=== PATIENT | female | born 1955 | race Caucasian/White ===

== ENCOUNTER 2018-01-01 19:22 | Emergency (ER) | payer SELFPAY ==
[2018-01-01 19:30] VITALS: BMI 37.8
--- NOTE | 2018-01-01 20:42 | RAD ---
HISTORY: Cough Study: PA and lateral views of the chest. Comparison: None. Findings: The cardiomediastinal silhouette is normal. No focal consolidations, pleural effusions or pneumothora x. Osseous structures demonstrate no acute abnormality. IMPRESSION: 1. No acute cardiopulmonary process. Reported By:
--- NOTE | 2018-01-01 20:44 | DR.GENAD ---
HPI - PCP Primary Care Physician: SEDRICK - Complaint/Symptoms Chief Complaint Doctors Comments: History as stated. Chief Complaint:: PT STATES" I'M HAVING A BAD COUGH I FEEL LIKE I GOT FLUID BUILD UP I CAN HEAR MYSELF RATTLE" - Source History Provided: Patient - Mode of Arrival Mode of Arrival: Ambulatory - Timing Onset of Chief Complaint: 12/29/17 PMH - PMH Past Medical History: Yes Past Medical History: Diabetes, Hypertension, Hypothyroidism Past Surgical History: No - Family History History of Family Medical Conditions: Yes Family Medical History: [place], Hypertension - Social History Lives With: Family Lives Where: Home - infectious screening In the last 2 months have you had wt loss of >10#?: NO Have you had fever, night sweats or hemotysis?: No Have you traveled outside the country in the last 6 months?: No ROS - Review of Systems Eyes: No Symptoms Reported ENTM: No Symptoms Reported Respiratoy: Non-Productive Cough Cardiovascular: No Symptoms Reported Gastrointestinal/Abdominal: No Symptoms Reported Genitourinary: No Symptoms Reported Neurological: No Symptoms Reported Musculoskeletal: No Symptoms Reported Integumentary: No Symptoms Reported Hematologic/Lymphatic: No Symptoms Reported Endocrine: No Symptoms Reported Psychiatric: No Symptoms Reported All Other Systems: Reviewed and Negative PE - Vital Signs Vitals: Temperature 98 F Pulse Rate 69 Respiratory Rate 20 Blood Pressure 121/77 O2 Sat by Pulse Oximetry 95 - General Limitations: No Limitations General Appearance: Alert, In No Apparent Distress - Head Head Exam: Normal Inspection, Atraumatic - Eyes Eye exam: Normal Appearance, PERRL, EOMI - ENT ENT Exam: Normal Exam External Ear Exam: Normal External Inspection TM/Canal Exam: Bilateral Normal Nose Exam: Normal Nose Exam Mouth Exam: Normal Inspection Throat Exam: Normal Inspection - Neck Neck Exam: Normal Inspection, Full ROM - Chest Chest Inspection: Normal Inspection - Respiratory Respiratory Exam: Normal Lung Sounds Bilat Respiratory Exam: Bilateral Clear to Auscultation - Cardiovascular Cardiovascular Exam: Regular Rate, Normal Rhythm - Abdominal Exam Abdominal Exam: Normal Inspection, Normal Bowel Sounds Abdominal Tenderness: negative: RUQ, RLQ, LUQ, LLQ, Epigastrium, Suprapubic, Diffuse, Mild, Moderate, Severe, Other - Extremities Extremities Exam: Normal Inspection, Full ROM - Back Back Exam: Normal Inspection, Full ROM - Neurologic Neurological Exam: Alert, Oriented X3, CN II-XII Intact - Psychiatric Psychiatric Exam: Normal Affect - Skin Skin Exam: Warm, Dry, Intact Course - Reevaluation 1st: Unchanged ROR - XRAY XRAY Interpreted by: Radiologist (Chest: negative) - Diagnosis Discharge Problem: Cough - Discharge Plan Condition: Stable - Follow ups/Referrals Follow ups/Referrals: DOROTHY DUBOSE [Primary Care Provider] - 3 days - Instructions
[2018-01-01 20:54] VITALS: BP 120/74
== END 2018-01-01 20:54 | disposition home or self-care (01) ==
LOC: ER 19:22
DX: R05 Cough (principal)
CPT/HCPCS: 71046; 99282

== ENCOUNTER 2020-09-17 12:11 | Inpatient (IN) ==
[2020-09-17 12:28] VITALS: BMI 39.4
--- NOTE | 2020-09-17 12:42 | DR.DIZZY ---
HPI Time seen Time Seen by Provider: 09/17/20 12:35 PCP Primary Care Physician: HERMELINDA KAY HPI Comment HPI Comment: A 65 y/o female presenting weakness, dizziness x 3 weeks. She states her urine output and bowel movement are decreased. She numbness to her legs also. Complaint Chief Complaint:: PT STATES I HAVE HAD NUMBNESS TO HER LEGS , COLD EXT'S , NAUSEA , PROBLEMS PEEING AND POOPING AND WEAKNESS ,, PT STATES " I HAVE BEEN LIKE THIS FOR 3 WEEKS "..BR COVID-19 Coronavirus risk:travel/contact w/high risk person: No Has patient experienced Coronavirus symptoms: No Nurses Notes Reviewed Nurses Notes Review: Yes Source History Provided: Patient Mode of Arrival Mode of Arrival: Stretcher Timing Onset of Chief Complaint: 09/03/20 Came on: Gradually Duration How lon Duration: Weeks Location of Weakness Weakness Location: Generalized Context Onset: With light exertion Does pt take pot. toxic medication?: No History of: None Stroke Symptoms: None Modifying factors Worsens: Nothing Associated signs and symptoms Associated Signs and Symptoms: Nausea PMH PMH Past Medical History: Yes Past Medical History: Diabetes, Hypertension and Hypothyroidism Past Surgical History: Yes Surgical History: Unknown Family History History of Family Medical Conditions: Yes Family Medical History: [place] and Hypertension Social History Does patient currently use any type of tobacco product: No Have you used tobacco products in the last 12 months: No Type of Tobacco Use: None Does any household member use tobacco: No Alcohol Use: Rarely Do you use any recreational Drugs:: No Lives With: Family Lives Where: Home Travel Risk Coronavirus risk:travel/contact w/high risk person: No Has patient experienced Coronavirus symptoms: No Infectious screening In the last 2 months have you had wt loss of >10#?: NO Have you had fever, night sweats or hemotysis?: No Have you traveled outside the country in the last 6 months?: No Isolation: Standard ROS Review of Systems Constitutional: Weakness Eyes: No Symptoms Reported ENTM: No Symptoms Reported Respiratoy: No Symptoms Reported Cardiovascular: No Symptoms Reported Gastrointestinal/Abdominal: Nausea Genitourinary: No Symptoms Reported Neurological: Paresthesia (legs) Musculoskeletal: No Symptoms Reported Integumentary: No Symptoms Reported Hematologic/Lymphatic: No Symptoms Reported Endocrine: No Symptoms Reported Psychiatric: No Symptoms Reported PE Vital Signs Vitals: Temperature 98.1 F Pulse Rate 74 Respiratory Rate 18 Blood Pressure [Left Arm] 179/79 Blood Pressure 132/63 O2 Sat by Pulse Oximetry 91 General Limitations: No Limitations General Appearance: Alert and In No Apparent Distress Head Head Exam: Normal Inspection, Atraumatic and Normocephalic Eyes Eye exam: Normal Appearance and EOMI ENT ENT Exam: Normal Exam, Normal Oropharynx, Normal External Ear Exam and Mucous Membranes Moist Neck Neck Exam: Normal Inspection, Full ROM and Trachea Midline Chest Chest Inspection: Normal Inspection and Symmetric Chest Wall Rise Respiratory Respiratory Exam: Normal Lung Sounds Bilat Cardiovascular Cardiovascular Exam: Regular Rate, Normal Rhythm, Normal Heart Sounds, +S1 and +S2 Abdominal Exam Abdominal Exam: Normal Inspection, Normal Bowel Sounds and Soft Rectal Rectal Exam: Deferred Extremeties Extremities Exam: Normal Inspection and Full ROM Back Back Exam: Normal Inspection and Full ROM Neurologic Neurological Exam: Alert and Oriented X3 Psychiatric Psychiatric Exam: Normal Affect and Normal Mood Skin Skin Exam: Dry and Normal Color COURSE Reevaluation 1st: Unchanged Education/Counseling Education/Counseling: Patient, Education and Counseling Educated On: Treatment, Diagnosis, Prognosis and Needs for Follow Up ROR Labs Reviewed Laboratory Results Reviewed?: Yes Result Diagrams: 09/17/20 12:57 09/17/20 12:57 Laboratory: WBC 3.4 X10^3/uL (3.6-10.0) L 09/17/20 12:57 RBC 1.07 X10^6/uL (3.5-5.4) L 09/17/20 12:57 Hgb 5.0 g/dL (12.0-16.0) L* 09/17/20 12:57 Hct 14.4 % (36.0-47.0) L* 09/17/20 12:57 MCV 133.7 fL (80.0-100.0) H 09/17/20 12:57 MCH 46.2 pg (27.0-34.0) H 09/17/20 12:57 MCHC 34.5 g/dL (33.0-35.0) 09/17/20 12:57 RDW 16.3 % (11.6-16.5) 09/17/20 12:57 Plt Count 71 X10^3/uL (150.0-450.0) L 09/17/20 12:57 Plt Count Comment Decreased (ADEQUATE) A 09/17/20 12:57 MPV 10.7 fL (7.4-11.0) 09/17/20 12:57 Neut % (Auto) 48.4 % (42.0-75.0) 09/17/20 12:57 Lymph % (Auto) 43.7 % (21.0-51.0) 09/17/20 12:57 [place] % (Auto) 3.7 % (0.0-13.0) 09/17/20 12:57 Eos % (Auto) 4.0 % (0.9-2.9) H 09/17/20 12:57 Baso % (Auto) 0.2 % (0.2-1.0) 09/17/20 12:57 Neut # (Auto) 1.6 x10^3/uL (2.2-4.8) L 09/17/20 12:57 Lymph # (Auto) 1.5 X10^3/uL (1.3-2.9) 09/17/20 12:57 [place] # (Auto) 0.1 x10^3/uL (0.3-0.8) L 09/17/20 12:57 Eos # (Auto) 0.1 x10^3/uL (0.0-0.2) 09/17/20 12:57 Baso # (Auto) 0.0 X10^3/uL (0.0-0.1) 09/17/20 12:57 Absolute Nucleated RBC 0.1 /100WBC 09/17/20 12:57 Plt Morphology Comment Normal (NORMAL) 09/17/20 12:57 RBC Morphology Abnormal (NORMAL) A 09/17/20 12:57 Poikilocytosis 1+ A 09/17/20 12:57 Macrocytosis 3+ A 09/17/20 12:57 Sodium 141 mmol/L (136-145) 09/17/20 12:57 Corrected Sodium 143 mmol/L (136-145) 09/17/20 12:57 Potassium 4.6 mmol/L (3.5-5.1) 09/17/20 12:57 Chloride 105 mmol/L (98-107) 09/17/20 12:57 Carbon Dioxide 29.0 mmol/L (21-32) 09/17/20 12:57 BUN 32 mg/dL (7-18) H 09/17/20 12:57 Creatinine 1.63 mg/dL (0.55-1.02) H 09/17/20 12:57 Est GFR (MDRD) Af Amer 41 (>60) L 09/17/20 12:57 Est GFR (MDRD) Non-Af 34 (>60) L 09/17/20 12:57 Glucose 185 mg/dL (65-99) H 09/17/20 12:57 Calcium 9.2 mg/dL (8.5-10.1) 09/17/20 12:57 Corrected Calcium TNP 09/17/20 12:57 Total Bilirubin 1.30 mg/dL (0.2-1.0) H 09/17/20 12:57 AST 36 Units/L (15-37) 09/17/20 12:57 ALT 18 Units/L (12-78) 09/17/20 12:57 Alkaline Phosphatase 47 Units/L (46-116) 09/17/20 12:57 Total Protein 7.1 g/dL (6.4-8.2) 09/17/20 12:57 Albumin 3.4 g/dL (3.4-5.0) 09/17/20 12:57 Globulin 3.7 g/dL (2.5-4.5) 09/17/20 12:57 Albumin/Globulin Ratio 0.9 Ratio (1.1-2.1) L 09/17/20 12:57 TSH 3rd Generation 2.622 uIU/mL (0.358-3.74) 09/17/20 12:57 Stool Description Fob tube 09/17/20 14:48 Stl Occult Blood (IFOB) Negative (NEGATIVE) 09/17/20 14:48 Blood Type A POSITIVE 09/17/20 14:40 Antibody Screen Negative 09/17/20 14:40 Crossmatch See Detail 09/17/20 14:40 EKG Rate: 65 [place]: Normal Rhythm: NSR Block: None Hypertrophy: None Opioid Opioid Risk Tool Age (Tae box if 16-45): No History of Preadolescent Sexual Abuse: No Total: 0 Total Score Risk Category: Low Risk Copyright: Herbert DILL predicting aberrant behaviors Diagnosis Discharge Problem: Anemia, macrocytic, Hypothyroidism (acquired), Benign essential HTN Type 2 diabetes mellitus Qualifiers: Diabetes mellitus computer terminal operator insulin use: without computer terminal operator use Diabetes mellitus complication status: without complication Qualified Code(s): E11.9 - Type 2 diabetes mellitus without complications ADDITIONAL NOTES Additional Notes Additional Notes: [id number] : 1955 Sex: F Location: ER Order Number(s): [id number] Procedure(s):LUMBAR SPINE W/O CON Ordering Physician: NIXON MART Primary Care: Eileen Anne Service Date: 09/17/20 Service Time: 1259 HISTORY NUMBNESS LOWER LEGS STUDY LUMBAR SPINE W/O CON COMPARISON None. TECHNIQUE Multiple axial images of the lumbar spine were obtained from the thoracolumbar junction to the sacrum without the administration of IV contrast. Sagittal and coronal reformats were performed and reviewed. Dose reduction techniques including Automated Exposure Control (AEC) and adjustment of mA and kV were utilized. FINDINGS There is a lucent lesion at L3 at the left vertebral body that measures 1.7 cm craniocaudal image 31 series 7. On the axial sequence image 47 series 4 the lesion has internal trabecula consistent with a hemangioma. There is minimal retrolisthesis of L1 on L2 and L2 on L3. Minimal rightward curvature apex L2-3. No fracture or aggressive osseous lesion. No significant bony encroachment on the spinal canal or neural foramina. Mild vacuum disc phenomena at T12-L1 and L1-L2. Overall mild spondylosis. Moderately atherosclerotic normal caliber abdominal aorta. IMPRESSION Mild spondylosis of the lumbar spine with mild degenerative listhesis as above. MRI may provide further evaluation on stenosis of the canal and neural foramina. Lucent lesion at L3 likely a hemangioma. Electronically signed by: Carlo Cantu (Sep 17, 2020 13:52:00)
[2020-09-17] MEDS ORDERED: NS 1000 ML 1,000 ML IV ONE ×2 (12:53→14:41)
[2020-09-17 13:03] LABS: BASOPHILS % (AUTO) 0.2 % (0.2-1.0); EOSINOPHILS # (AUTO) 0.1 x10^3/uL (0.0-0.2); LYMPHOCYTES # (AUTO) 1.5 X10^3/uL (1.3-2.9); LYMPHOCYTES % (AUTO) 43.7 % (21.0-51.0); MEAN CORPUSCULAR HEMOGLOBIN 46.2 pg (27.0-34.0); MEAN CORPUSCULAR HGB CONC 34.5 g/dL (33.0-35.0); MEAN CORPUSCULAR VOLUME 133.7 fL (80.0-100.0); MEAN PLATELET VOLUME 10.7 fL (7.4-11.0); MONOCYTES # (AUTO) 0.1 x10^3/uL (0.3-0.8); MONOCYTES % (AUTO) 3.7 % (0.0-13.0); NEUTROPHILS # (AUTO) 1.6 x10^3/uL (2.2-4.8); NEUTROPHILS % (AUTO) 48.4 % (42.0-75.0); PLATELET COUNT 71 X10^3/uL (150.0-450.0); RED BLOOD COUNT 1.07 X10^6/uL (3.5-5.4); RED CELL DISTRIBUTION WIDTH 16.3 % (11.6-16.5); WHITE BLOOD COUNT 3.4 X10^3/uL (3.6-10.0)
[2020-09-17 13:12] LABS: HEMATOCRIT 14.4 % (36.0-47.0)
[2020-09-17 13:17] LABS: PLATELET MORPHOLOGY COMMENT NORMAL (NORMAL); POIKILOCYTOSIS 1+
[2020-09-17] MEDS ORDERED: NS 1000 ML 1,000 ML ONE ×2 (13:18→14:33)
[2020-09-17 13:24] LABS: ALANINE AMINOTRANSFERASE 18 Units/L (12-78); ALBUMIN 3.4 g/dL (3.4-5.0); ALKALINE PHOSPHATASE 47 Units/L (46-116); ASPARTATE AMINO TRANSFERASE 36 Units/L (15-37); BLOOD UREA NITROGEN 32 mg/dL (7-18); CALCIUM 9.2 mg/dL (8.5-10.1); CHLORIDE 105 mmol/L (98-107); COR NA(FOR HYPERGLY) 143 mmol/L (136-145); CREATININE 1.63 mg/dL (0.55-1.02); SODIUM 141 mmol/L (136-145); TOTAL PROTEIN 7.1 g/dL (6.4-8.2); TSH (3RD GENERATION) 2.622 uIU/mL (0.358-3.74); eGFR NON BLACK RACES 34 (>60)
--- NOTE | 2020-09-17 13:53 | CT ---
HISTORYNUMBNESS LOWER LEGSSTUDYLUMBAR SPINE W/O CONCOMPARISONNone.TECHNIQUEMultiple axial images of the lumbar spine were obtained from the thoracolumbar junction to the sacrum without the administration of IV contrast. Sagittal and coronal reformats were performed and reviewed. Dose reduction techniques including Automated Exposure Control (AEC) and adjustment of mA and kV were utilized.FINDINGSThere is a lucent lesion at L3 at the left vertebral body that measures 1.7 cm craniocaudal image 31 series 7. On the axial sequence image 47 series 4 the lesion has internal trabecula consistent with a hemangioma. There is minimal retrolisthesis of L1 on L2 and L2 on L3. Minimal rightward curvature apex L2-3. No fracture or aggressive osseous lesion. No significant bony encroachment on the spinal canal or neural foramina. Mild vacuum disc phenomena at T12-L1 and L1-L2. Overall mild spondylosis. Moderately atherosclerotic normal caliber abdominal aorta.IMPRESSIONMild spondylosis of the lumbar spine with mild degenerative listhesis as above. MRI may provide further evaluation on stenosis of the canal and neural foramina. Lucent lesion at L3 likely a hemangioma.Electronically signed by: Carlo Cantu (Sep 17, 2020 13:52:00)
[2020-09-17 16:05] LABS: IRON 243 ug/dL (50-175)
[2020-09-17] MEDS: NS 1000 ML 1,000 ML IV SCH (16:05)
[2020-09-17] MEDS ORDERED: NS 500 ML IV 500 ML IV ONE ×2 (16:44→21:35)
[2020-09-17] MEDS ORDERED: HumuLIN R SC PRN (18:00)
[2020-09-17] MEDS ORDERED: GLUCOPHAGE ONE (18:25)
[2020-09-17] MEDS: GLUCOPHAGE PO SCH (18:34)
[2020-09-17] MEDS ORDERED: COLACE CAP 100 MG PO ONE (19:32)
[2020-09-17] MEDS ORDERED: PRAVACHOL PO ONE (19:32)
[2020-09-17] MEDS ORDERED: MILK OF MAGNESIA ONE (19:33)
[2020-09-17] MEDS: COLACE CAP 100 MG PO SCH (20:19)
[2020-09-17] MEDS: MILK OF MAGNESIA PO SCH (20:19)
[2020-09-17] MEDS: PRAVACHOL PO SCH (20:20)
[2020-09-17] MEDS: SNACK - Diabetic Appropriate PO SCH (22:14)
[2020-09-18] MEDS ORDERED: GLUCOPHAGE ONE ×2 (03:47→16:18)
[2020-09-18] MEDS ORDERED: SYNTHROID 50 mcg TAB ONE (03:48)
[2020-09-18 04:29] LABS: BASOPHILS % (AUTO) 0.4 % (0.2-1.0); EOSINOPHILS # (AUTO) 0.1 x10^3/uL (0.0-0.2); EOSINOPHILS % (AUTO) 3.4 % (0.9-2.9); HEMATOCRIT 25.7 % (36.0-47.0); HEMOGLOBIN 8.9 g/dL (12.0-16.0); LYMPHOCYTES # (AUTO) 1.7 X10^3/uL (1.3-2.9); LYMPHOCYTES % (AUTO) 50.4 % (21.0-51.0); MEAN CORPUSCULAR HEMOGLOBIN 38.1 pg (27.0-34.0); MEAN CORPUSCULAR HGB CONC 34.9 g/dL (33.0-35.0); MEAN CORPUSCULAR VOLUME 109.4 fL (80.0-100.0); MEAN PLATELET VOLUME 10.5 fL (7.4-11.0); MONOCYTES # (AUTO) 0.1 x10^3/uL (0.3-0.8); MONOCYTES % (AUTO) 3.7 % (0.0-13.0); NEUTROPHILS # (AUTO) 1.4 x10^3/uL (2.2-4.8); NEUTROPHILS % (AUTO) 42.1 % (42.0-75.0); PLATELET COUNT 49 X10^3/uL (150.0-450.0); RED BLOOD COUNT 2.35 X10^6/uL (3.5-5.4); RED CELL DISTRIBUTION WIDTH 26.8 % (11.6-16.5); WHITE BLOOD COUNT 3.3 X10^3/uL (3.6-10.0)
[2020-09-18 04:42] LABS: ALBUMIN 3.3 g/dL (3.4-5.0); CALCIUM 9.2 mg/dL (8.5-10.1); CARBON DIOXIDE 26.2 mmol/L (21-32); COR CA(FOR HYPOALB) 9.8 mg/dL (8.5-10.1); CREATININE 1.34 mg/dL (0.55-1.02); TOTAL PROTEIN 6.4 g/dL (6.4-8.2)
[2020-09-18] MEDS: SYNTHROID 50 mcg TAB PO SCH (05:04)
[2020-09-18] MEDS: NS 1000 ML 1,000 ML IV SCH ×3 (05:04→21:08)
[2020-09-18 05:14] LABS: ANISOCYTOSIS 2+; PLATELET MORPHOLOGY COMMENT NORMAL (NORMAL)
[2020-09-18] MEDS: GLUCOPHAGE PO SCH ×3 (06:13→16:32)
[2020-09-18] MEDS ORDERED: VITAMIN B-12 INJ IM SCH (08:00)
[2020-09-18] MEDS: PAXIL PO SCH (08:46)
[2020-09-18] MEDS: ASPIRIN 81 MG CHEWTAB PO SCH (08:46)
[2020-09-18] MEDS: MILK OF MAGNESIA PO SCH ×2 (08:46→20:10)
[2020-09-18] MEDS: VITAMIN B-12 INJ IM NR (08:47)
[2020-09-18 15:49] LABS: BILIRUBIN,URINE NEGATIVE (NEGATIVE); BLOOD/HEMOGLOBIN,URINE 1+ (NEGATIVE); GLUCOSE, URINE NEGATIVE (NEGATIVE); KETONES,URINE NEGATIVE (NEGATIVE); LEUKOCYTE ESTERASE ,URINE 3+ (NEGATIVE); NITRITES,URINE NEGATIVE (NEGATIVE); PROTEIN,URINE 1+ (NEGATIVE); UROBILINOGEN,URINE NORMAL (NORMAL)
[2020-09-18 16:04] LABS: HEMATOCRIT 24.8 % (36.0-47.0); HEMOGLOBIN 8.8 g/dL (12.0-16.0)
[2020-09-18 16:05] LABS: APPEARANCE,URINE SLIGHTLY HAZY (CLEAR); COLOR,URINE YELLOW (YELLOW); RBC,URINE 0-2 /HPF (0-3); SQUAMOUS EPITHELIAL CELL,UR RARE /HPF (NEGATIVE)
[2020-09-18 16:06] LABS: BACTERIA,URINE NEGATIVE /HPF (NEGATIVE)
[2020-09-18] MEDS ORDERED: PEPCID TAB 20 MG PO PRN (20:02)
[2020-09-18] MEDS ORDERED: ZOFRAN INJ 4 MG VIAL IVP PRN (20:03)
[2020-09-18] MEDS ORDERED: ZOFRAN INJ 4 MG VIAL ONE (20:05)
[2020-09-18] MEDS ORDERED: PEPCID TAB 20 MG ONE (20:06)
[2020-09-18] MEDS: PRAVACHOL PO SCH (20:09)
[2020-09-18] MEDS: COLACE CAP 100 MG PO SCH (20:09)
[2020-09-19] MEDS: SNACK - Diabetic Appropriate PO SCH (02:23)
[2020-09-19 04:22] LABS: BASOPHILS % (AUTO) 0.2 % (0.2-1.0); EOSINOPHILS # (AUTO) 0.2 x10^3/uL (0.0-0.2); EOSINOPHILS % (AUTO) 4.7 % (0.9-2.9); HEMATOCRIT 24.2 % (36.0-47.0); HEMOGLOBIN 8.5 g/dL (12.0-16.0); LYMPHOCYTES # (AUTO) 1.9 X10^3/uL (1.3-2.9); LYMPHOCYTES % (AUTO) 52.5 % (21.0-51.0); MEAN CORPUSCULAR HGB CONC 35.1 g/dL (33.0-35.0); MEAN CORPUSCULAR VOLUME 108.2 fL (80.0-100.0); MEAN PLATELET VOLUME 9.1 fL (7.4-11.0); MONOCYTES # (AUTO) 0.2 x10^3/uL (0.3-0.8); MONOCYTES % (AUTO) 4.8 % (0.0-13.0); NEUTROPHILS # (AUTO) 1.4 x10^3/uL (2.2-4.8); NEUTROPHILS % (AUTO) 37.8 % (42.0-75.0); PLATELET COUNT 41 X10^3/uL (150.0-450.0); RED BLOOD COUNT 2.24 X10^6/uL (3.5-5.4); RED CELL DISTRIBUTION WIDTH 26.6 % (11.6-16.5); WHITE BLOOD COUNT 3.6 X10^3/uL (3.6-10.0)
[2020-09-19 04:29] LABS: ALBUMIN 3.2 g/dL (3.4-5.0); CALCIUM 9.2 mg/dL (8.5-10.1); COR CA(FOR HYPOALB) 9.8 mg/dL (8.5-10.1); CREATININE 1.32 mg/dL (0.55-1.02); TOTAL PROTEIN 6.3 g/dL (6.4-8.2)
[2020-09-19] MEDS ORDERED: GLUCOPHAGE ONE (04:39)
[2020-09-19 04:44] LABS: ANISOCYTOSIS 3+; PLATELET MORPHOLOGY COMMENT NORMAL (NORMAL)
[2020-09-19] MEDS: SYNTHROID 50 mcg TAB PO SCH (05:42)
[2020-09-19] MEDS: GLUCOPHAGE PO SCH (06:23)
[2020-09-19] MEDS: MILK OF MAGNESIA PO SCH (08:58)
[2020-09-19] MEDS: ASPIRIN 81 MG CHEWTAB PO SCH (08:58)
[2020-09-19] MEDS: PAXIL PO SCH (08:58)
[2020-09-19] MEDS: NS 1000 ML 1,000 ML IV SCH (09:02)
[2020-09-19] MEDS ORDERED: ZESTRIL TAB 40 MG PO SCH (10:00)
[2020-09-19] MEDS ORDERED: VITAMIN B-12 INJ ONE (10:34)
[2020-09-19] MEDS: VITAMIN B-12 INJ IM NR (10:53)
[2020-09-19 11:02] VITALS: BP 122/59
== END 2020-09-19 10:55 | disposition home or self-care (01) | DRG 812 ==
LOC: ER 12:11 → MED/SURG 15:31
PROVIDERS: ADMIT Obstetrics & Gynecology Obstetrics; ATTEND Obstetrics & Gynecology Obstetrics
DX: D51.0 Vitamin B12 deficiency anemia due to intrinsic factor deficiency; D53.9 Nutritional anemia, unspecified; I10 Essential (primary) hypertension; D69.6 Thrombocytopenia, unspecified; E11.40 Type 2 diabetes mellitus with diabetic neuropathy, unspecified; Z86.73 Personal history of transient ischemic attack (TIA), and cerebral infarction without residual deficits